=== PATIENT | male | born 1960 | race African-American/Black ===

== ENCOUNTER 2017-09-22 04:34 | Emergency (ER) | payer MEDICAID, MEDICARE ==
[~2017-09-22] VITALS: Ht 172.7 cm; Wt 70.4 kg
[~2017-09-22 04:34] MED LIST: naproxen
[2017-09-22] MEDS ORDERED: IBUPROFEN 800MG TABLET PO ONE (08:45)
[2017-09-22 10:57] VITALS: BP 148/94
== END 2017-09-22 10:59 | disposition home or self-care (01) ==
LOC: ER 04:34
DX: J06.9 Acute upper respiratory infection, unspecified (principal); J02.9 Acute pharyngitis, unspecified; Z86.12 Personal history of poliomyelitis
CPT/HCPCS: 87070; 87430; 87804; 99284; Z7610

== ENCOUNTER 2019-05-30 00:43 | Emergency (ER) | payer MEDICARE ==
[~2019-05-30] VITALS: Ht 172.7 cm; Wt 67.3 kg
[2019-05-30 05:40] VITALS: BP 138/78
== END 2019-05-30 05:47 | disposition home or self-care (01) ==
LOC: ER 00:43
DX: J20.9 Acute bronchitis, unspecified (principal); Z86.12 Personal history of poliomyelitis
CPT/HCPCS: 71045; 99283

== ENCOUNTER 2024-05-03 12:14 | Emergency (ER) | payer MEDICAID, MEDICARE ==
[~2024-05-03] VITALS: Ht 170.2 cm; Wt 82.0 kg
[2024-05-03 12:19] VITALS: O2SAT 98
[2024-05-03] MEDS ORDERED: BENZ100C86 MT (14:41)
[2024-05-03] MEDS ORDERED: AZIT250T12 MT (14:41)
[2024-05-03] MEDS ORDERED: TUSSL MT (14:41)
[2024-05-03 14:55] VITALS: BP 144/79; PULSE 98; RESP 18; TEMP 36.78072; O2SAT 98
== END 2024-05-03 14:57 | disposition home or self-care (01) ==
LOC: ER 12:14
DX: J20.9 Acute bronchitis, unspecified (principal); Z20.822 Contact with and (suspected) exposure to COVID-19
CPT/HCPCS: 71045; 87426; 87804; 99284